=== PATIENT | female | born 1960 | race African-American/Black ===

== ENCOUNTER 2024-03-09 09:58 | Day surgery (SDC) | payer OTHER ==
[2024-03-07 14:00] VITALS: BMI 20.7
[2024-03-09] MEDS ORDERED: Bupivacaine PF 0.5% 30 ML VIAL ONE (10:40)
[2024-03-09] MEDS ORDERED: Clindamycin/D5W 900 mg/50 ml Premix Bag ONE (11:31)
[2024-03-09] MEDS ORDERED: Dexamethasone 4 mg/ml Vial ONE (11:45)
[2024-03-09] MEDS ORDERED: PROPOFOL 20 ML ONE (11:45)
[2024-03-09] MEDS ORDERED: Ondansetron PF 4 MG/2 ML Vial ONE (11:45)
[2024-03-09] MEDS ORDERED: Lidocaine 1% PF 5 ML VIAL ONE (11:45)
[2024-03-09] MEDS ORDERED: fentaNYL 50 mcg/mL 1 mL Vial ONE ×2 (11:45→13:27)
[2024-03-09] MEDS ORDERED: ePHEDrine Sulfate 50 MG/10 ML VIAL ONE (12:16)
== END 2024-03-09 14:15 | disposition home or self-care (01) ==
LOC: CSHSDC 09:58
PROVIDERS: ATTEND Podiatrist Foot & Ankle Surgery
PROC: 0SGM0JZ Fusion of Right Metatarsal-Phalangeal Joint with Synthetic Substitute, Open Approach (ICD-10-PCS; principal; 2024-03-09)
DX: M20.11 Hallux valgus (acquired), right foot (principal); M21.611 Bunion of right foot; I10 Essential (primary) hypertension; F32.A Depression, unspecified; E03.9 Hypothyroidism, unspecified; I69.354 Hemiplegia and hemiparesis following cerebral infarction affecting left non-dominant side; I69.393 Ataxia following cerebral infarction; F41.9 Anxiety disorder, unspecified; E87.6 Hypokalemia; F17.210 Nicotine dependence, cigarettes, uncomplicated; G20.A1 Parkinson's disease without dyskinesia, without mention of fluctuations; R29.6 Repeated falls; M13.841 Other specified arthritis, right hand; M13.842 Other specified arthritis, left hand; Z79.890 Hormone replacement therapy; Z79.899 Other long term (current) drug therapy; Z88.6 Allergy status to analgesic agent; Z98.890 Other specified postprocedural states
CPT/HCPCS: 93005; 93010; C1713; J0665; J1100; J2405; J2704; J3010; J3490

== ENCOUNTER 2024-04-27 11:39 | Day surgery (SDC) | payer MEDICARE, MEDICAID ==
[2024-04-26 12:34] VITALS: BMI 21.6
[2024-04-27] MEDS ORDERED: PROPOFOL 20 ML ONE (13:44)
[2024-04-27] MEDS ORDERED: Lidocaine 1% PF 5 ML VIAL ONE (13:44)
[2024-04-27] MEDS ORDERED: CEFAZOLIN 2 GM VIAL ONE (14:02)
[2024-04-27] MEDS ORDERED: fentaNYL 50 mcg/mL 1 mL Vial ONE (14:12)
[2024-04-27] MEDS ORDERED: Dexamethasone 4 mg/ml Vial ONE (14:25)
[2024-04-27] MEDS ORDERED: Ondansetron PF 4 MG/2 ML Vial ONE (14:25)
[2024-04-27] MEDS ORDERED: Bupivacaine 0.5% 10 ML VIAL ONE (14:53)
== END 2024-04-27 16:45 | disposition home or self-care (01) ==
LOC: CSHSDC 11:39
PROVIDERS: ATTEND Podiatrist Foot & Ankle Surgery
DX: T84.199A Other mechanical complication of internal fixation device of unspecified bone of limb, initial encounter (principal)
CPT/HCPCS: 73620; J1100; J2405; J2704; J3010; J3490